=== PATIENT | female | born 1975 | race Hispanic/Latino ===

== ENCOUNTER 2022-08-31 22:50 | Emergency (ER) | payer BC ==
[~2022-08-31] VITALS: Ht 165.1 cm; Wt 71.7 kg
[2022-08-31 23:00] VITALS: O2SAT 100
[2022-08-31] MEDS ORDERED: ACETAMINOPHEN 325 MG TAB ONE (23:11)
[2022-08-31] MEDS ORDERED: DIPHENHYDRAMINE HCL 25 MG CAP ONE (23:11)
[2022-08-31] MEDS ORDERED: CEPHALEXIN MONOHYDRATE 250 MG CAP ONE (23:11)
[2022-08-31] MEDS ORDERED: CEFDINIR300 MG PO (23:15)
[2022-08-31] MEDS ORDERED: CEPHALEXIN MONOHYDRATE 250 MG CAP PO ONE (23:15)
[2022-08-31] MEDS ORDERED: IBUPROFEN200 MG PO (23:15)
[2022-08-31] MEDS ORDERED: ACETAMINOPHEN 325 MG TAB PO ONE (23:15)
[2022-08-31] MEDS ORDERED: DIPHENHYDRAMINE HCL 25 MG CAP PO ONE (23:15)
[2022-08-31] MEDS ORDERED: OFLOXACIN5 ML RIGHT EAR (23:32)
== END 2022-08-31 23:45 | disposition home or self-care (01) ==
LOC: FSED 23:01
DX: H66.91 Otitis media, unspecified, right ear (principal)
CPT/HCPCS: 99283